=== PATIENT | female | born 1935 | race Caucasian/White ===

== ENCOUNTER 2022-10-03 11:11 | Emergency (ER) | payer OTHER ==
[~2022-10-03] VITALS: Ht 152.4 cm; Wt 56.7 kg
[2022-10-03] MEDS ORDERED: VITAFOL-OB+DHA1 EACH PO (11:27)
== END 2022-10-03 11:58 | disposition home or self-care (01) ==
LOC: ED 11:11
DX: K62.3 Rectal prolapse (principal); K64.9 Unspecified hemorrhoids; Z88.0 Allergy status to penicillin
CPT/HCPCS: 99283

== ENCOUNTER 2022-11-19 18:44 | Emergency (ER) | payer MEDICARE ==
[~2022-11-19] VITALS: Ht 152.4 cm; Wt 55.3 kg
[~2022-11-19 18:44] MED LIST: VITAFOL-OB+DHA1 EACH PO
[2022-11-19] MEDS ORDERED: MIRTAZAPINE7.5 MG PO (19:23)
[2022-11-19] MEDS ORDERED: DOXEPIN HCL6 MG PO (19:23)
[2022-11-19] MEDS ORDERED: DONEPEZIL HCL10 MG PO (19:24)
[2022-11-19] MEDS ORDERED: CITALOPRAM HBR10 MG PO (19:24)
[2022-11-19] MEDS ORDERED: FAMOTIDINE40 MG PO (19:24)
--- NOTE | 2022-11-21 07:12 | EKG ---
[facility] [address] [place] [address] Signed Sinus bradycardia with 2nd degree AV block with 2:1 AV conduction Minimal voltage criteria for LVH, may be normal variant ( Malick product ) Abnormal ECG No previous ECGs available Confirmed by OJ KRISHNAN MD ([id number] on 11/21/2022 7:11:49 AM Electronically Signed By: OJ KRISHNAN MD 11/21/22711 PATIENT NAME: FAMILIA BROWN Electrocardiogram DATE OF : [birth year] PHYSICIAN: OJ KRISHNAN MD REPORT #: [id number] REPORT IS CONFIDENTIAL AND NOT TO BE RELEASED WITHOUT AUTHORIZATION
== END 2022-11-19 21:00 | disposition home or self-care (01) ==
LOC: ED 18:44
DX: R29.6 Repeated falls (principal); F03.90 Unspecified dementia, unspecified severity, without behavioral disturbance, psychotic disturbance, mood disturbance, and anxiety; Z88.0 Allergy status to penicillin; Z79.899 Other long term (current) drug therapy; W19.XXXA Unspecified fall, initial encounter
CPT/HCPCS: 36415; 51701; 70450; 71045; 80053; 81001; 85025; 85610; 85730; 87088; 93005; 93010; 99284-25

== ENCOUNTER 2023-04-15 19:04 | Emergency (ER) | payer MEDICARE ==
[~2023-04-15] VITALS: Ht 152.4 cm; Wt 58.1 kg
[~2023-04-15 19:04] MED LIST changes: +CEFDINIR300 MG PO; +CITALOPRAM HBR10 MG PO; +DONEPEZIL HCL10 MG PO; +DOXEPIN HCL6 MG PO; +FAMOTIDINE40 MG PO; +MIRTAZAPINE7.5 MG PO; +MYRBETRIQ50 MG PO
[2023-04-15 21:47] VITALS: BP 139/69
== END 2023-04-15 21:06 | disposition home or self-care (01) ==
LOC: ED 19:04
DX: S01.81XA Laceration without foreign body of other part of head, initial encounter (principal); S51.812A Laceration without foreign body of left forearm, initial encounter; W17.89XA Other fall from one level to another, initial encounter; Z88.0 Allergy status to penicillin; Z79.899 Other long term (current) drug therapy
CPT/HCPCS: 12013; 70450; 90471; 90714; 99283-25